=== PATIENT | female | born 1970 | race Asian ===

== ENCOUNTER → 2016-12-01 16:03 | Outpatient (CLI) | payer OTHER | END | disposition home or self-care (01) | LOC: D.MAMMO 09:30 | DX: Z12.31 Encounter for screening mammogram for malignant neoplasm of breast (principal) ==

== ENCOUNTER → 2018-01-03 05:57 | Outpatient (CLI) | payer OTHER | END | disposition home or self-care (01) | LOC: D.MAMMO 05:57 | DX: Z12.31 Encounter for screening mammogram for malignant neoplasm of breast (principal) ==

== ENCOUNTER → 2018-08-28 07:09 | Outpatient (CLI) | payer OTHER ==
[2018-08-28 08:05] LABS: BASOPHILS 0.2 % (0-2); EOSINOPHILS 0.9 % (0-7); HEMATOCRIT 39.3 % (36.0-48.0); HEMOGLOBIN 13.6 g/dL (12-16); IMMATURE GRANULOCYTES 0.2 % (0-5); MCH 32.4 pg (26.0-34.0); MCHC 34.6 g/dL (31.0-37.0); MCV 93.6 fL (80.0-100.0); MEAN PLATELET VOLUME 10.3 fL (7.4-10.4); MONOCYTES 6.8 % (2-11); NEUTROPHILS 60.9 % (40-80); PLATELET COUNT 177 10x3/uL (130-400); RDW 12.6 % (11.5-14.5); WBC 6.6 10x3/uL (4.8-10.8)
[2018-08-28 08:21] LABS: % SATURATION 41 % (15-55); IRON 126 ug/dl (35-150); TOTAL IRON BIND CAPACITY 305 ug/dl (260-445); UNSAT IRON BIND CAPACITY 179 ug/dl (150-375)
[2018-08-28 08:33] LABS: BILIRUBIN - DIRECT 0.13 mg/dL (0.00-0.30); CHOL - HDL RATIO 5.7 ratio (2.3-4.1); LDL-HDL RATIO 3.5 ratio (1.5-3.5)
[2018-08-29 07:27] LABS: HAPTOGLOBIN <10 mg/dL (34-200)
[2018-08-29 08:16] LABS: HEPATITIS C ANTIBODY <0.1 S/CO RAT (0.0-0.9)
[2018-08-29 12:15] LABS: ALPHA FETOPROTEIN -(TUMOR MRK) 2.5 ng/mL (0.0-8.3); ANA REFLEX - DIRECT Negative (Negative)
[2018-08-30 08:11] LABS: APTT 27.9 SECONDS (22.8-39.4); INR 0.99 (0.85-1.17); PROTIME 12.6 SECONDS (11.6-15.0)
[2018-08-30 13:16] LABS: MITOCHONDRIAL ANTIBODY <20.0 Units (0.0-20.0); SMOOTH MUSCLE ABS (ACTIN) 15 Units (0-19)
== END | disposition home or self-care (01) ==
LOC: D.US 07:00
PROVIDERS: Internal Medicine Gastroenterology
DX: K76.0 Fatty (change of) liver, not elsewhere classified (principal); R79.89 Other specified abnormal findings of blood chemistry

== ENCOUNTER → 2019-02-21 06:22 | Outpatient (CLI) | payer OTHER | END | disposition home or self-care (01) | LOC: D.US 06:22 | PROVIDERS: ATTEND Internal Medicine Gastroenterology | DX: K76.0 Fatty (change of) liver, not elsewhere classified (principal) ==

== ENCOUNTER 2019-02-27 16:00 | Outpatient (CLI) | payer OTHER ==
[2019-02-21 07:32] LABS: ALBUMIN 3.7 g/dL (3.4-5.0); BILIRUBIN - DIRECT 0.07 mg/dL (0.00-0.30); BILIRUBIN - INDIRECT 0.48 mg/dL (0.00-1.00); BILIRUBIN - TOTAL 0.55 mg/dL (0.2-1.3); PROTEIN - SERUM 7.4 g/dL (6.4-8.2)
== END 2019-02-27 16:30 | disposition home or self-care (01) ==
LOC: D.MAMMO 16:00
PROVIDERS: ATTEND Family Medicine Adult Medicine
DX: Z12.31 Encounter for screening mammogram for malignant neoplasm of breast (principal)

== ENCOUNTER 2020-02-29 19:00 | Outpatient (CLI) | payer OTHER | END 2020-02-29 23:59 | disposition home or self-care (01) | LOC: D.MAMMO 19:00 | PROVIDERS: ATTEND Nurse Practitioner Family | DX: Z12.31 Encounter for screening mammogram for malignant neoplasm of breast (principal) ==

== ENCOUNTER → 2020-03-24 08:20 | Outpatient (CLI) | payer OTHER ==
[2020-03-24 09:49] LABS: ALBUMIN 3.6 g/dL (3.4-5.0); BILIRUBIN - DIRECT 0.15 mg/dL (0.00-0.30); BILIRUBIN - INDIRECT 0.52 mg/dL (0.00-1.00); BILIRUBIN - TOTAL 0.67 mg/dL (0.2-1.3); PROTEIN - SERUM 7.1 g/dL (6.4-8.2)
== END | disposition home or self-care (01) ==
LOC: D.US 08:20
PROVIDERS: ATTEND Internal Medicine Gastroenterology
DX: K76.0 Fatty (change of) liver, not elsewhere classified (principal)

== ENCOUNTER → 2020-03-28 08:19 | Outpatient (CLI) | payer OTHER ==
[2020-03-28 08:46] LABS: CREATININE - SERUM 1.1 mg/dL (0.6-1.3)
== END | disposition home or self-care (01) ==
LOC: D.LAB 08:19 → D.MRI 09:00
PROVIDERS: ATTEND Internal Medicine Gastroenterology
DX: R93.89 Abnormal findings on diagnostic imaging of other specified body structures (principal); K86.9 Disease of pancreas, unspecified

== ENCOUNTER → 2020-04-08 14:44 | Outpatient (CLI) | payer OTHER | END | disposition home or self-care (01) | LOC: D.LAB 14:44 | PROVIDERS: ATTEND Internal Medicine Gastroenterology | DX: R93.89 Abnormal findings on diagnostic imaging of other specified body structures (principal) ==

== ENCOUNTER 2020-12-02 07:20 | Day surgery (SDC) | payer OTHER ==
[~2020-12-02] VITALS: Ht 175.3 cm; Wt 81.8 kg
[2020-12-02 07:43] LABS: BASOPHILS 0.6 % (0-2); EOSINOPHILS 2.4 % (0-7); HEMATOCRIT 39.7 % (36.0-48.0); HEMOGLOBIN 13.7 g/dL (12-16); IMMATURE GRANULOCYTES 0.3 % (0-5); LYMPHOCYTE ABS# 2.31 10x3/uL (1.18-3.74); LYMPHOCYTES 36.8 % (15-50); MCH 31.9 pg (26.0-34.0); MCHC 34.5 g/dL (31.0-37.0); MCV 92.5 fL (80.0-100.0); MEAN PLATELET VOLUME 10.1 fL (7.4-10.4); MONOCYTES 6.5 % (2-11); NEUTROPHIL ABS# 3.35 10x3/uL (1.56-6.13); NEUTROPHILS 53.4 % (40-80); PLATELET COUNT 192 10x3/uL (130-400); RBC 4.29 10x6/uL (4.00-5.40); RDW 12.4 % (11.5-14.5); WBC 6.3 10x3/uL (4.8-10.8)
[2020-12-02 07:45] LABS: CALC OSMOLALITY 279 mosm/kg (275-300); CHLORIDE - SERUM 106 mmol/L (98-107); CREATININE - SERUM 0.8 mg/dL (0.6-1.3); GLUCOSE 110 mg/dL (74-106); SODIUM 140 mmol/L (136-145); UREA NITROGEN 13 mg/dL (7-18); eGFR NON AFRICAN AMERICAN 80 mL/min (90-120)
[2020-12-02 07:59] LABS: APTT 27.5 SECONDS (22.8-39.4); INR 1.01 (0.85-1.17); PROTIME 12.3 SECONDS (11.6-15.0)
[2020-12-02] MEDS ORDERED: OMEPRAZOLE20 M1 PO (08:15)
[2020-12-02] MEDS ORDERED: FISH OIL 1,0001 CA1 PO (08:16)
[2020-12-02] MEDS ORDERED: VITAMIN D325 MC1 PO (08:16)
[2020-12-02] MEDS ORDERED: ZETIA10 MG PO (08:16)
[2020-12-02 08:22] VITALS: BP 119/73; Ht 175.3 cm; Wt 81.8 kg
[2020-12-02 08:39] LABS: HCG SERUM NEGATIVE (NEGATIVE)
--- NOTE | 2020-12-02 10:48 | NUR ---
1045 RETURNED TO 2512, SLEEPY, WANTS TO SLEEP NOW, CALL LIGHT AT SIDE.
--- NOTE | 2020-12-02 11:05 | NUR ---
1100 DRESSING CDI, NO HEMATOMA. STATES SHE IS READY FOR COFFEE NOW, COFFEE WITH SUGAR AND CREAM SERVED, FINGER FOOD DIET ORDERED.
--- NOTE | 2020-12-02 11:34 | NUR ---
1130 STATES HAS A MILD DISCOMFORT ACROSS RIBCAGE, DECLINED OFFER OF A PAIN MEDICATION. ELECTRODES REMOVED FROM CHEST. AWAITING FINGER FOOD DIET.
--- NOTE | 2020-12-02 13:13 | NUR ---
1225 REPORT TO KATHRYN REILLY RN FOR LUNCH RELIEF.
== END 2020-12-02 14:45 | disposition home or self-care (01) ==
LOC: D.CT 07:20
PROVIDERS: Anesthesiology; General Practice; ATTEND Internal Medicine Gastroenterology
DX: K76.0 Fatty (change of) liver, not elsewhere classified (principal)